=== PATIENT | male | born 1970 | race Caucasian/White ===

== ENCOUNTER 2025-07-06 17:44 | Inpatient (IN) | payer MEDICARE, MEDICAID ==
[~2025-07-06] VITALS: Ht 172.7 cm; Wt 86.3 kg
[~2025-07-06 17:44] MED LIST: ASPI-1265 PO; ATE25T PO; DIAZ-546 PO; NAPR-1144 PO
[2025-07-06] MEDS: morphine 4 MG/ML inj SYRINge IV ONE (18:04)
[2025-07-06] MEDS: normal saline 1000ml 1,000 ML IV ONE (18:13)
[2025-07-06] MEDS: morphine 4 MG/ML inj SYRINge IM ONE (18:13)
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
--- NOTE | 2025-07-06 18:45 | RADIOLOGY REPORT ---
CLINICAL INDICATION: RIGHT ANKLE TRAUMA TECHNIQUE: 3 radiographic views of the right ankle were obtained. Comparison: None FINDINGS/IMPRESSION: There is no evidence of acute fracture or dislocation. Small plantar calcaneal bony spur. The visualized joint space is well maintained. The alignment is anatomical. Wound over the posterior ankle with associated subcutaneous emphysema and soft tissue edema.
[2025-07-06 18:54] LABS: MEAN PLATELET VOLUME 8.6 FL (7.4-10.4); RED CELL DISTRIBUTION WIDTH 14.4 % (11.5-14.5)
--- NOTE | 2025-07-06 18:54 | RADIOLOGY REPORT ---
CLINICAL INDICATION: RIGHT ANKLE TRAUMA TECHNIQUE: 4 views of the right foot Comparison: DI ANKLE, COMPLETE(3VW MIN) on DOS: 07/06/25 FINDINGS/IMPRESSION: There is no evidence of acute fracture or dislocation. Soft tissues are unremarkable.
[2025-07-06 19:12] LABS: CREATININE 1.50 MG/DL (0.60-1.10); TOTAL CARBON DIOXIDE 27.7 MMOL/L (24-32); eCRCL 56 ML/MIN; eGFR 49 ML/MIN
[2025-07-06 19:17] LABS: ETHANOL < 10 MG/DL (<10)
[2025-07-06] MEDS ORDERED: Potassium Cl inj 40 MEQ in normal saline 500ml IV soln 500 ML IV STA (19:33)
[2025-07-06] MEDS: LIDOcaine 1% W/epiNEPHrine 1:100,000 20ml vial IJ ONE (19:34)
[2025-07-06] MEDS: CefTRIAXone 2gm/D5W 50ml BAG 50 ML IV ONE (20:12)
[2025-07-06] MEDS: vancomycin/NS 1 GM ADD-VANTAGE 250 ML IV ONE (20:12)
[2025-07-06] MEDS: TETanus/Pertussis (Acell)/Diphther VAC/PF (Tdap-Adult) 0.5ml syringe IMVAC ONE (20:13)
[2025-07-06] MEDS: Potassium Cl inj 40 MEQ in sodium chloride 0.45% 500ml 500 ML IV STA (20:22)
[2025-07-06] MEDS ORDERED: potassium Cl 40MEQ/1/2NS 520ml 520 ML IV PRN (20:50)
[2025-07-06] MEDS ORDERED: magnesium sulf-water 4G/100mL 100 ML IV PRN (20:50)
[2025-07-06] MEDS ORDERED: ondansetron/PF 4mg/2ml inj IV PRN (20:50)
[2025-07-06] MEDS ORDERED: magnesium Cl slow-release 64mg tablet PO PRN (20:50)
[2025-07-06] MEDS: normal saline 1000ml 1,000 ML IV SCH (20:50)
[2025-07-06] MEDS ORDERED: magnesium sulf-water 2g/50mL 50 ML IV PRN (20:50)
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
[2025-07-06] MEDS: thiamine 100mg/ml 2ml inj. IV SCH (22:01)
[2025-07-06] MEDS ORDERED: NO HOME MEDS (22:10)
[2025-07-06 23:23] VITALS: BP 134/86; PULSE 54; RESP 17; TEMP 98; O2SAT 99
[2025-07-06 23:28] LABS: LEUKOCYTE ESTERASE ,URINE NEGATIVE (Neg); NITRITES, URINE NEGATIVE (Neg); OCCULT BLOOD,URINE NEGATIVE (Neg)
[2025-07-06 23:32] LABS: UA COLLECTION TYPE URINAL
[2025-07-06 23:35] LABS: URINE AMPHETAMINE SCREEN POSITIVE (Neg); URINE BARBITUATE SCREEN NEGATIVE (Neg); URINE BENZODIAZEPINES SCREEN NEGATIVE (Neg); URINE CANNABINOID SCREEN NEGATIVE (Neg); URINE COCAINE SCREEN NEGATIVE (Neg); URINE METHADONE SCREEN NEGATIVE (Neg); URINE OPIATE SCREEN POSITIVE (Neg); URINE PHENCYCLIDINE SCREEN NEGATIVE (Neg)
[2025-07-07] VITALS (10 sets, daily range): BP systolic 140–202; BP diastolic 85–114; PULSE 54–91; RESP 16–18; TEMP 97.5–98.9; O2SAT 95–100
[2025-07-07] MEDS: potassium Cl 20 mEq SR tablet PO PRN ×2 (00:04→04:19)
[2025-07-07] MEDS: HYDROcodone/acetaminophen 5mg/325mg tablet PO PRN (05:17)
[2025-07-07 06:11] LABS: CREATININE 1.00 MG/DL (0.60-1.10); TOTAL CARBON DIOXIDE 27.9 MMOL/L (24-32); eCRCL 84 ML/MIN; eGFR 78 ML/MIN
[2025-07-07 06:16] LABS: MEAN PLATELET VOLUME 8.9 FL (7.4-10.4); RED CELL DISTRIBUTION WIDTH 14.4 % (11.5-14.5)
[2025-07-07] MEDS: K and/or MAG REPLACEMENT MC SCH (08:00)
[2025-07-07] MEDS: docusate sod 100mg capsule PO SCH (08:26)
[2025-07-07] MEDS: multivitamins, therapeutics tablet PO SCH (08:27)
[2025-07-07] MEDS: heparin, porcine 5000 units/ml vial SQ SCH (08:28)
[2025-07-07] MEDS: vancomycin/NS 1 GM ADD-VANTAGE 250 ML IV SCH (08:35)
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
[2025-07-07] MEDS: ringers solution, lacted 1,000 ML IV SCH (11:07)
[2025-07-07] MEDS: piperacillin/tazo 3.375gm/50ml 50 ML IV SCH (11:08)
[2025-07-07] MEDS ORDERED: CefTRIAXone/D5W-Rocephin 1gm 50 ML IV SCH (19:00)
[2025-07-08] MEDS: hydrALAZINE 20mg/ml inj. IV PRN (04:47)
[2025-07-08 06:00] VITALS: BP 183/111; PULSE 82; RESP 18; TEMP 97.7; O2SAT 97
[2025-07-08 06:28] LABS: MEAN PLATELET VOLUME 9.0 FL (7.4-10.4); RED CELL DISTRIBUTION WIDTH 15.0 % (11.5-14.5)
[2025-07-08 07:54] LABS: CREATININE 0.86 MG/DL (0.60-1.10); TOTAL CARBON DIOXIDE 31.4 MMOL/L (24-32); eCRCL 97 ML/MIN; eGFR > 90 ML/MIN
[2025-07-08] MEDS: hydrALAZINE 20mg/ml inj. IV ONE (08:44)
--- NOTE | 2025-07-08 08:52 | ELECTROCARDIOGRAPH REPORT ---
[facility] Test Date: 2025-07-06 Test Time: 17:44:04 Pat Name: ABI ARGUETA Department: EMERGENCY ROOM Room: ORTHO [facility] Gender: M [employer]inc Plating Machine Operator: CHER : 1970 Requested By: GRECIA WESLEY Order Number: [id number] Reading MD: Measurements Intervals [place] Rate: 88 P: 71 SD: 143 QRS: 91 QRSD: 110 T: 64 QT: 379 QTc: 459 Interpretive Statements Sinus rhythm Consider right atrial enlargement Borderline right axis deviation Probable left ventricular hypertrophy ST elev, probable normal early repol pattern Please click the below link to view image of tracing.
[2025-07-08 11:49] VITALS: BP 133/86; PULSE 84
[2025-07-08 18:00] VITALS: BP 143/91; PULSE 88; RESP 16; TEMP 97.8; O2SAT 99
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
[2025-07-08 22:00] VITALS: BP 152/88; PULSE 72; RESP 14; TEMP 97.6; O2SAT 98
[2025-07-09 06:00] VITALS: BP 191/112; PULSE 81; RESP 16; TEMP 97.4; O2SAT 98
[2025-07-09 06:13] LABS: MEAN PLATELET VOLUME 9.0 FL (7.4-10.4); RED CELL DISTRIBUTION WIDTH 14.7 % (11.5-14.5)
[2025-07-09 06:20] LABS: CREATININE 0.94 MG/DL (0.60-1.10); TOTAL CARBON DIOXIDE 31.4 MMOL/L (24-32); eCRCL 89 ML/MIN; eGFR 84 ML/MIN
[2025-07-09] MEDS: pantoprazole 40mg Tablet.DR PO SCH (07:30)
[2025-07-09 07:43] VITALS: BP 156/95
[2025-07-09 10:00] VITALS: BP 133/85; PULSE 85; RESP 16; TEMP 99.2; O2SAT 97
[2025-07-09] MEDS ORDERED: CEPH500C2 PO (12:49)
--- NOTE | 2025-07-09 18:58 | DISCHARGE SUMMARY ---
Discharge Summary Providers to No new complaint today asking to be discharged home ~ Discharge Summary Assessment Left foot laceration repaired by ER doctor Polysubstance abuse Chronic alcoholism Hypokalemia Acute kidney injury secondary to vasomotor nephropathy Bipolar/depression schizophrenia Homelessness and incarceration history Admission Diagnosis: ETOH, HYPOKALEMIA Admission Diagnosis Comment: Left foot laceration repaired by ER doctor Polysubstance abuse Chronic alcoholism Hypokalemia Acute kidney injury secondary to vasomotor nephropathy Bipolar/depression schizophrenia Homelessness and incarceration history Hospital Course DATE OF ADMISSION: July 06, 2025 DATE OF DISCHARGE: July 09, 2025 Discharge Diagnosis\Comment: Left foot laceration repaired by ER doctor Polysubstance abuse Chronic alcoholism Hypokalemia Acute kidney injury secondary to vasomotor nephropathy Bipolar/depression schizophrenia Homelessness and incarceration history Operations\Procedures: Laceration repair right foot Consultants: None Complications: None Condition on DC: Stable Discharge Summary: This is a 47-year-old male brought in by for continued anxiety, fear, with no p.o. intake, history of psychiatric disorder and catatonia. states very little eating and drinking over the past week previous evaluation on 06/27/2025 patient has been home since July 01, 2025. No intake since then. Patient also had some nausea and vomiting with last emesis yesterday.PREVIOUS: ED with chief complaints of anxiety, increased fear, nausea. Psychiatric symptoms returned in the context of outpatient provider discontinuing lorazepam. Has been trying to wander away from home for the past two days, anxiety increased to the extent that he has been unable to eat, didnt sleep last night, has already gone 24 hours with no sleep and no PO intake. After admission patient was extensively evaluated and treated today he feels fine asking to be discharged home, medication reconciled he will be discharged in stable condition follow-up PCP and wound care in the morning, today on physical exam Vital signs, stable ,afebrile. Pulse Oximetry reflects adequate oxygenation. General: well developed, well nourished. Awake , alert, and oriented x4, resting comfortably in the bed, in no acute distress . Skin: Warm, dry, no pallor, no rash or petechiae. HEENT: Atraumatic, normocephalic, EOMI, anicteric sclera B; pink conjunctiva; PERRLA, normal oropharynx, moist oral and nasal mucosa. Tympanic membrane , nose , throat clear. Neck: Trachea midline. Supple, full range of motion, no JVD, bruit , hepatojugular reflex , lymphadenopathy or masses, or other lesions Cardiac: Regular rhythm, regular rate no murmurs, rubs, or gallops. Normal S1 and S2, no S3 noticed. PMI is normal. Respiratory: Equal breath sounds bilaterally, no tachypnea; lungs clear to auscultation bilaterally, no wheezing ,rub or rales, or crackles. Chest wall is symmetric and without deformity. No signs of trauma. Chest wall is nontender. No signs of respiratory distress. Resonance is normal upon percussion bilaterally. Gastrointestinal: Abdomen symmetric, non-distended, soft, non-tender, normal bowel sounds x4 quadrant, normoactive, no hepatosplenomegaly , no masses , no bruit, no flank pain bilaterally. No voluntary guarding, rebound, or rigidity. No tenderness to percussion. No pulsatile masses. Equal femoral pulses. No Villanueva's sign or McBurney point tenderness. Back; no CVA tenderness bilaterally, no deformities. Neck and back are without deformity as well. No tenderness noted on palpation of the spinous processes. Spinous processes are midline. Cervical, thoracic, and lumbar paraspinal muscles are not tender and are without spasm. : normal external genitalia, without lesions, swelling, masses or tenderness. Musculoskeletal: Extremities, normal range of motion, non-tender, muscle strength 5/5 x 4. Negative Homans signs bilaterally on lower extremity. Distal pulses full symmetrical, no clubbing, cyanosis , edema. Right foot, dressing clean dry and intact, neurovascular grossly intact Neurological: Speech is clear, alert, and oriented x 4. No motor or sensory deficit, deep tendon reflexes normal, cerebellar intact. Cranial nerves II-XII intact. Psych: Alert and or appropriate, normal affect. Vascular: Good distal pulses, which are equal x4; capillary refill less than 2 seconds. Lymphatic, no lymphadenopathy. *Problems/Diagnosis: (1) Laceration of right ankle with foreign body Status: Acute Total Time Spent on D/C: > 30 Minutes Date of Service: Jul 09, 2025 Billing Provider: VIRGINIA GAN MD Common Visit Codes: 72656-YUQ/OBS DISCH DAY >30min Problem Qualifiers (1) Laceration of right ankle with foreign body: Qualified Codes: S91.021A - Laceration with foreign body, right ankle, initial encounter VIRGINIA GAN MD Jul 09, 2025 18:57
== END 2025-07-09 14:20 | disposition home or self-care (01) | DRG 907 ==
LOC: ER 17:45 → ED HOLD 20:51 → EDBEDREQ 21:39 → ORTHO 4S 23:20
PROVIDERS: ADMIT Internal Medicine; ATTEND Nurse Practitioner Family
PROC: 0LQS0ZZ Repair Right Ankle Tendon, Open Approach (ICD-10-PCS; principal; 2025-07-06)
DX: S91.021A Laceration with foreign body, right ankle, initial encounter (principal); N17.0 Acute kidney failure with tubular necrosis; Z59.00 Homelessness unspecified; Z66 Do not resuscitate; I95.9 Hypotension, unspecified; I16.0 Hypertensive urgency; F19.10 Other psychoactive substance abuse, uncomplicated; F10.20 Alcohol dependence, uncomplicated; E87.6 Hypokalemia; F20.9 Schizophrenia, unspecified; E86.0 Dehydration; X58.XXXA Exposure to other specified factors, initial encounter; F32.A Depression, unspecified; F41.9 Anxiety disorder, unspecified; Z87.891 Personal history of nicotine dependence; Z91.199 Patient's noncompliance with other medical treatment and regimen due to unspecified reason; Y93.89 Activity, other specified; Y92.89 Other specified places as the place of occurrence of the external cause; Y99.8 Other external cause status
CPT/HCPCS: 12032; 36415; 73610; 73630; 80048; 80053; 80076; 80202; 80305; 80320; 81003; 82948; 83735; 84145; 85025; 87081; 90715; 93005; 96365; 97110; 97116; 97161; 97530; 97760; 99285; A4615; A4620; A6258; A6446; A6449; G0378; J0360; J0696; J1171; J1644; J2270; J2470; J2543; J3373; J3411; J3480; J3490; J7030; J7040; J7120

== ENCOUNTER 2025-08-07 00:15 | Inpatient (IN) | payer MEDICARE, MEDICAID ==
[~2025-08-07] VITALS: Ht 172.7 cm; Wt 86.4 kg
[2025-08-07] VITALS (7 sets, daily range): BP systolic 100–175; BP diastolic 70–107; PULSE 60–87; RESP 15–19; TEMP 97.5–98.6; O2SAT 97–100
[~2025-08-07 00:15] MED LIST changes: +NO HOME MEDS
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
[2025-08-07] MEDS: CefTRIAXone 2gm/D5W 50ml BAG 50 ML IV ONE (01:18)
[2025-08-07] MEDS: vancomycin/NS 1 GM ADD-VANTAGE 250 ML IV ONE ×2 (01:25→03:25)
--- NOTE | 2025-08-07 01:34 | RADIOLOGY REPORT ---
CLINICAL INDICATION: infection RIGHT, pain and swelling TECHNIQUE: ANKLELTDDI ANKLE,LIMITED (AP/LAT) Comparison: DI ANKLE, COMPLETE(3VW MIN) on DOS: 07/06/25, DI FOOT, COMPLETE (3VW MIN) on DOS: 07/06/25 FINDINGS/IMPRESSION: : Large focal ulceration along the medial aspect of the ankle with soft tissue gas. No obvious erosive bony changes. No fracture or malalignment.
--- NOTE | 2025-08-07 01:34 | RADIOLOGY REPORT ---
CHEST RADIOGRAPH Indication: infection Technique: Single frontal view of the chest was obtained COMPARISON: None FINDINGS: Lungs and pleural spaces are clear. Cardiac silhouette and hilary are within normal limits. Bones and soft tissues demonstrate no significant abnormality. IMPRESSION: No acute disease.
[2025-08-07 01:45] LABS: MEAN PLATELET VOLUME 8.8 FL (7.4-10.4); RED CELL DISTRIBUTION WIDTH 14.1 % (11.5-14.5)
[2025-08-07 01:46] LABS: CREATININE 0.93 MG/DL (0.60-1.10); TOTAL CARBON DIOXIDE 31.5 MMOL/L (24-32); eCRCL 90 ML/MIN; eGFR 85 ML/MIN
[2025-08-07] MEDS ORDERED: mag hydrox/Alum hydrox/simeth 30ml oral suspension PO PRN (02:35)
[2025-08-07] MEDS ORDERED: magnesium sulf-water 4G/100mL 100 ML IV PRN (02:35)
[2025-08-07] MEDS ORDERED: potassium Cl 40MEQ/1/2NS 520ml 520 ML IV PRN (02:35)
[2025-08-07] MEDS ORDERED: ondansetron/PF 4mg/2ml inj IV PRN (02:35)
[2025-08-07] MEDS ORDERED: potassium Cl 20 mEq SR tablet PO PRN (02:35)
[2025-08-07] MEDS ORDERED: magnesium Cl slow-release 64mg tablet PO PRN (02:35)
[2025-08-07] MEDS ORDERED: HYDROmorphone inj. 0.5 MG/0.5 ML DISP.SYRIN IV PRN (02:35)
[2025-08-07] MEDS ORDERED: magnesium hydroxide 30ml (MOM) UD suspension PO PRN (02:35)
[2025-08-07] MEDS ORDERED: magnesium sulf-water 2g/50mL 50 ML IV PRN (02:35)
[2025-08-07 03:04] LABS: APTT 27 SECONDS (22-32); INR 1.0 INR
[2025-08-07] MEDS: normal saline 1000ml 1,000 ML IV SCH (03:08)
[2025-08-07 03:10] LABS: CHOL/HDL RATIO 4.3 (0.00-4.99); ETHANOL < 10 MG/DL (<10); LDL CHOLESTEROL 112 MG/DL (50-100); PHOSPHORUS 3.5 MG/DL (2.3-4.5); PRO BRAIN NATRIURETIC PEPTIDE 253 PG/ML (0-125)
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
[2025-08-07 05:20] LABS: LEUKOCYTE ESTERASE ,URINE NEGATIVE (Neg); NITRITES, URINE NEGATIVE (Neg); OCCULT BLOOD,URINE NEGATIVE (Neg)
[2025-08-07 05:21] LABS: UA COLLECTION TYPE CLN CATCH MIDSTREAM
[2025-08-07 05:50] LABS: URINE AMPHETAMINE SCREEN POSITIVE (Neg); URINE BARBITUATE SCREEN NEGATIVE (Neg); URINE BENZODIAZEPINES SCREEN NEGATIVE (Neg); URINE CANNABINOID SCREEN NEGATIVE (Neg); URINE COCAINE SCREEN NEGATIVE (Neg); URINE METHADONE SCREEN NEGATIVE (Neg); URINE OPIATE SCREEN NEGATIVE (Neg); URINE PHENCYCLIDINE SCREEN NEGATIVE (Neg)
[2025-08-07] MEDS: K and/or MAG REPLACEMENT MC SCH (07:38)
[2025-08-07] MEDS: heparin, porcine 5000 units/ml vial SQ SCH (07:41)
[2025-08-07] MEDS: nicotine 21mg patch - 24 hr TD SCH (07:41)
[2025-08-07] MEDS: docusate sod 100mg capsule PO SCH (07:41)
[2025-08-07] MEDS: potassium Cl 20 mEq SR tablet PO PRN (09:19)
[2025-08-07] MEDS: HYDROmorphone/PF 0.2 MG/ML SYRINGE IV PRN (09:50)
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
[2025-08-07] MEDS ORDERED: dextrose 50%-water 50ml dispensing syringe IV PRN (12:05)
[2025-08-07] MEDS: metroNIDAZOLE-Flagyl 500mg/NS 100 ML IV SCH (12:05)
[2025-08-07] MEDS ORDERED: haloperidol lactate 5mg/ml inj IM PRN (12:05)
--- NOTE | 2025-08-07 12:36 | CONSULTATION REPORT ---
History of Present Illness Providers to CC ~ Reason for Admit\Admit Dx: left ankle wound Refering MD: Dr Kiser History of Present Illness The patient is a 54-year-old male with PMH significant for schizophrenia, bipolar disorder, polysubstance use disorder (daily methamphetamine use), chronic alcohol use disorder (reports consuming approximately half a gal of vodka per day), and heavy tobacco use (1.5 pack/day since childhood). He is currently unstable housed, intermittently staying with his sister, and was brought from retirement custody due to concerns for progressively worsening right medial ankle wound. There was some concern about osteomyelitis or necrotizing fasciitis. Therefore orthopedic consultation is obtained ankle x-ray and MRI have been obtained Allergies: Coded Allergies: No Known Allergies (Unverified , 07/06/25) Home Medications Home Medications Active Reported No Home Medications (Home Med List) Each Past Family History Family History: FH: heart disease (Sisters, mother) Physical Exam Last Vital Signs Recorded: Temperature: 98.6, Source: Oral, Heart Rate: 87, Respiratory Rate: 18, BP: 100/70, Pulse Oximetry: 100, Weight: 86.360 General Appearance: alert, no apparent distress Extremities Full-thickness soft tissue loss over the medial ankle just above the medial malleolus there is no evidence of ascending lymphangitis no tenderness above the ankle or calf area. He is moving his ankle and toes well. There was no evidence of subcutaneous abscess. Results Results/Orders Results/Orders The MRI and x-rays were reviewed no bony lesions are noted and there does not appear to be free air in the soft tissues other than at the break in the skin Diagram Lab Result Diagram: 08/07/25 0115 08/07/25 0936 Assessment/Plan Problems/Diagnosis: (1) Cellulitis of ankle (2) Open wound of ankle Additional Plan I believe wound care and antibiotics are the appropriate management at this time. I do not see any evidence of deep abscess or necrotizing fasciitis. We will should his condition change I would be happy to re-evaluate. Thank you for the consultation. Problem Qualifiers (1) Open wound of ankle: Qualified Codes: S91.001A - Unspecified open wound, right ankle, initial encounter FRANCA ROGERS Jr., MD Aug 07, 2025 12:36
[2025-08-07] MEDS: multivitamins, therapeutics tablet PO SCH (13:00)
[2025-08-07] MEDS: thiamine 100mg/ml 2ml inj. IV SCH (13:00)
[2025-08-07] MEDS: folic acid 1mg/0.2ml inj IV SCH (13:00)
[2025-08-07] MEDS: VANCOmycin 1250MG/NS 250ml Bag 250 ML IV SCH (13:02)
[2025-08-07] MEDS ORDERED: vancomycin/NS 1 GM ADD-VANTAGE 250 ML IV SCH (14:00)
--- NOTE | 2025-08-07 15:13 | PROGRESS NOTE- Residence ---
Progress Note - Resident Providers to CC Resident Creating Document: SOCO CHAN, RES ~ Antibiotic Timeout Antibiotic Ordered?: Yes Subjective The patient was seen and examined at bedside today. He complains of pain in his back. He would like to stay in the hospital for as long as he can, because his living situation outside is not very good. He would have to go back to his sister's place after discharge. He is on a probation. ID and ortho consulted. He admits to drinking one bottle of vodka each day and smokes one and half pack of cigarettes, also smokes methamphetamines regularly. Objective Vital Signs Date Time Temp Pulse Resp B/P (MAP) Pulse Ox O2 Delivery O2 Flow Rate FiO2 08/07/25 10:35 100/70 (80) 08/07/25 09:50 18 08/07/25 09:48 98.6 87 100 Room Air 08/07/25 05:00 98 Result Diagram: 08/07/25 0115 08/07/25 0936 Adult male, awake, alert and oriented, not in acute distress Head: Normocephalic with an atraumatic Eyes: Pupils- 3mm, reacting to light, conjunctiva- anicteric Nose and throat: No polyps, septum- normal, no mucosal ulcers Neck: Supple, no lymphadenopathy, no carotid bruit Respiratory: No use of accessory muscles of respiration, Bilateral normal veiscular breath sounds heard. No wheeze, rhochi or creps Cardiac: S1-S2 heard, rhythm regular, no gallop/murmur Abdomen: non distended, no tenderness, no organomegaly, bowel sounds - heard Extremities: right medial ankle - 1x2.5cm purulent non healing ulcer with white granulation tissue, no sinus tracts seen, no clubbing, no pedal edema, no deformities, peripheral pulses - 2+ Skin: warm and dry, no rash, no purpura Neuro: No focal deficit, gross cranial nerve exam - normal Coagulation Studies Laboratory Tests Test 08/07/25 01:15 Prothrombin Time 10.3 SECONDS (9.0-12.0) INR International Normalized Ratio 1.0 INR Activated Partial Thromboplast Time 27 SECONDS (22-32) Coagulation Comments Plan Plan Right medial ankle purulent non-healing wound Possible osteomyelitis Ankle x-ray reported large focal ulceration along the medial aspect of the ankle with soft tissue gas. WBC within normal limits, lactic acid normal, procalcitonin normal, CRP elevated at 0.71, ESR 32. Follow up with MRI right lower extremity with and without contrast. Continue the antibiotics - ceftriaxone, vancomycin and metronidazole day 1. Infectious diseases, Dr. Razo and orthopedic surgeon, Dr. Brantley consulted for suspicion of necrotizing fasciits. Continue normal saline 100 mL/hour. Wound care consult in place, follow up with culture reports. Hypokalemia Patient's potassium is 3.2, replaced as per protocol Untreated hypertension Patient stated that he does not take any medications for his hypertension. Started the patient on amlodipine 10 mg daily. Alcohol use disorder Methamphetamine use disorder Nicotine use disorder Homelessness Urine toxicology screen positive for methamphetamines. creative services intern and substance use navigator consult in place. Started the patient on severe alcohol withdrawl protocol. Continue daily thiamine, folic acid, multivitamin supplementation. Diazepam and haloperidol for anxiety and agitation. Bipolar disorder Schizophrenia Patient does not follow up with a psychiatrist. Currently not on any medications. He was on risperidone, benztropine but quit taking them 2 years ago. Code Status: DNR DVT Prophylaxis: Heparin Lines/Tubes: PIV Nutrition: 2 g sodium restricted diet PT: Ordered Prognosis: Guarded Disposition: Follow up with MRI right lower extremity. Continue antibiotics and wound care. Soco Chan MD Internal Medicine Resident, PGY-2 Date of Service: Aug 07, 2025 Billing Provider: JOSEPHINE CAMPUZANO MD Common Visit Codes: NOT BILLABLE (Admitted on 08/07) SOCO CHAN, RES Aug 07, 2025 15:13 JOSEPHINE CAMPUZANO MD Aug 14, 2025 07:35
--- NOTE | 2025-08-07 15:31 | RADIOLOGY REPORT ---
EXAM: MR MRI LOWER EXTREMITY RIGHT INDICATION: non healing wound TECHNIQUE: Multiplanar and multisequence MR imaging of the right ankle was performed in the absence of gadolinium contrast. COMPARISON: DI ANKLE,LIMITED (AP/LAT) on DOS: 08/07/25 FINDINGS: MEDIAL ANKLE: Intact posterior tibialis, flexor hallucis longus, and flexor digitorum tendons. Intact deltoid ligament. Intact spring ligament complex. LOW LATERAL ANKLE: Intermediate signal intensity with possible thickening of the anterior talofibular ligament. Intact peroneal brevis and longus tendons without tenosynovitis. HIGH LATERAL ANKLE: Intact anterior and posterior inferior tibiofibular ligaments. ANTERIOR ANKLE: Intact anterior tibialis, extensor digitorum longus, and extensor hallucis longus tendons. POSTERIOR ANKLE: No tibiotalar or subtalar joint effusion. Normal sinus Tarsi. Normal plantar fascia. Normal Achilles tendon. No retrocalcaneal bursitis. soft tissue ulceration with extensive surrounding phlegmon without definitive drainable fluid collection along the posterior medial aspect of the heel. Abnormal phlegmon extends into the pre Achilles fat pad with subsequent adjacent edema/ inflammation along the margin of the Achilles tendon. MIDFOOT: Normal. BONES: Indeterminate osteitis of the cuboid of Indeterminate of the consideration for stress reaction/bone contusion given known overlying ulceration in this region. No MR evidence of osteomyelitis. MUSCLES: Normal. NEUROVASCULAR: Normal tarsal tunnel OTHER: None IMPRESSION: 1. Soft tissue ulceration with extensive surrounding phlegmon without definitive drainable fluid collection along the posterior medial aspect of the heel. 2. Abnormal phlegmon extends into the pre Achilles fat pad with subsequent adjacent edema/ inflammation along the margin of the Achilles tendon. 3. No MR evidence of osteomyelitis. 4. Indeterminate osteitis of the cuboid of Indeterminate of the consideration for stress reaction/bone contusion given known overlying ulceration in this region.
[2025-08-07] MEDS ORDERED: diazepam inj 5 MG/ML inj. IV PRN (15:55)
[2025-08-07] MEDS: GADOTERATE MEGLUMINE 7.5 MMOL/15 ML VIAL IV ONE (16:22)
[2025-08-08] VITALS (7 sets, daily range): BP systolic 115–160; BP diastolic 70–95; PULSE 52–84; RESP 14–18; TEMP 97.7–98.3; O2SAT 98–100
[2025-08-08] MEDS: HYDROcodone/acetaminophen 5mg/325mg tablet PO PRN (02:27)
[2025-08-08 05:13] LABS: MEAN PLATELET VOLUME 9.1 FL (7.4-10.4); RED CELL DISTRIBUTION WIDTH 14.4 % (11.5-14.5)
[2025-08-08 05:52] LABS: CREATININE 0.82 MG/DL (0.60-1.10); TOTAL CARBON DIOXIDE 27.2 MMOL/L (24-32); eCRCL 102 ML/MIN; eGFR > 90 ML/MIN
[2025-08-08] MEDS: CefTRIAXone/D5W-Rocephin 1gm 50 ML IV SCH (09:03)
--- NOTE | 2025-08-08 11:58 | PROGRESS NOTE- Residence ---
Progress Note - Resident Providers to CC Resident Creating Document: LALI ENAMORADO RES ~ Antibiotic Timeout Antibiotic Ordered?: Yes Subjective The patient was seen and examined at bedside today. MRI negative for osteomylitis. He has remained afebrile with no elevated inflamatory markers. From ID standpoint, he is ready to be DC'd on Doxycycline 100 mg twice daily for 10 days and wound care follow up. We are signing off. Objective Vital Signs Date Time Temp Pulse Resp B/P (MAP) Pulse Ox O2 Delivery O2 Flow Rate FiO2 08/08/25 11:18 98.3 84 16 148/95 (112) 100 Room Air 08/07/25 05:00 98 General: Awake and Alert, no acute distress. Resp: Unlabored. Lungs clear to auscultation bilaterally. Heart: Regular Rate and rhythm, normal S1 and S2 without murmur, rub or gallop. Abdomen: Soft and non tender no organomegaly Extremities: Right foot: approximately 3x4 cm with the exposed granulation tissue and areas of necrosis and slough covering the wound via photograph. Threre is surrounding erythema. Skin: Warm and Dry. Result Diagram: 08/09/2518 08/09/2518 Coagulation Studies Laboratory Tests Test 08/07/25 01:15 Prothrombin Time 10.3 SECONDS (9.0-12.0) INR International Normalized Ratio 1.0 INR Activated Partial Thromboplast Time 27 SECONDS (22-32) Coagulation Comments Advance Care Planning Advanced Care plannin - 30 Minutes Assessment Assessment 08/07/2025: Lower extrimity MRI 1. Soft tissue ulceration with extensive surrounding phlegmon without definitive drainable fluid collection along the posterior medial aspect of the heel. 2. Abnormal phlegmon extends into the pre Achilles fat pad with subsequent adjacent edema/ inflammation along the margin of the Achilles tendon. 3. No MR evidence of osteomyelitis. 4. Indeterminate osteitis of the cuboid of Indeterminate of the consideration for stress reaction/bone contusion given known overlying ulceration in this region. Chronic posttraumatic right medial ankle wound Infected right medial ankle with purulent discharge Original ulceration 07/05 with subsequent wound dehiscence Patient self removed sutures; minimal wound care since Photograph shows 3-4 cm open wound with granulation, sloughs, and necrotic tissues with sorrounding erythema Differential: Chronic soft tissue infection versus cellulitis versus osteomyelitis No systemic inflammatory response (no leukocytosis, afebrile), ESR mildly elevated (32) Risk factors: Poor wound hygiene and delayed care, alcohol and meth use, homelessness and psychosocial barriers to O/P wound care Plan: Ready to be DC'd on Doxycycline 100 mg twice daily for 10 days. OP wound care follow up. We are signing off. Chronic alcohol use disorder Polysubstance use disorder/methamphetamine use Tobacco use disorder Management per primary team. Recommend CIWA protocol, social work consult and substance use navigator consult Electrolyte disturbance/hypokalemia Hypertension Management per primary team Lali Enamorado Internal Medicine Resident, PGY-3 Date of Service: Aug 08, 2025 Billing Provider: JAMIN THOMAS MD Addendum Agree with above note. Patient seen and examined with Dr. Enamorado. No evidence of osteomyelitis and he will be discharged with doxycycline. LALI ENAMORADO, RES Aug 08, 2025 11:58 JAMIN THOMAS MD Aug 09, 2025 16:52
[2025-08-08] MEDS: VANCOMYCIN LEVEL IV ONE (13:51)
--- NOTE | 2025-08-08 17:49 | PROGRESS NOTE- Residence ---
Progress Note - Resident Providers to CC Resident Creating Document: SOCO CHAN CHUYBREA, TONYA ~ Antibiotic Timeout Antibiotic Ordered?: Yes Subjective The patient was seen and examined at bedside today. ID started the patient on p.o. doxycycline. He reported back pain and the examination revealed point tenderness. MRI ordered. Objective Vital Signs Date Time Temp Pulse Resp B/P (MAP) Pulse Ox O2 Delivery O2 Flow Rate FiO2 08/08/25 12:12 18 08/08/25 11:18 98.3 84 148/95 (112) 100 Room Air 08/07/25 05:00 98 Result Diagram: 08/08/2543808/08/25438 Adult male, awake, alert and oriented, not in acute distress Head: Normocephalic with an atraumatic Eyes: Pupils- 3mm, reacting to light, conjunctiva- anicteric Nose and throat: No polyps, septum- normal, no mucosal ulcers Neck: Supple, no lymphadenopathy, no carotid bruit Respiratory: No use of accessory muscles of respiration, Bilateral normal veiscular breath sounds heard. No wheeze, rhochi or creps Cardiac: S1-S2 heard, rhythm regular, no gallop/murmur Abdomen: non distended, no tenderness, no organomegaly, bowel sounds - heard Back: Point tenderness in lower back Extremities: right medial ankle - 1x2.5cm purulent non healing ulcer with white granulation tissue, no sinus tracts seen, no clubbing, no pedal edema, no deformities, peripheral pulses - 2+ Skin: warm and dry, no rash, no purpura Neuro: No focal deficit, gross cranial nerve exam - normal Coagulation Studies Laboratory Tests Test 08/07/25 01:15 Prothrombin Time 10.3 SECONDS (9.0-12.0) INR International Normalized Ratio 1.0 INR Activated Partial Thromboplast Time 27 SECONDS (22-32) Coagulation Comments Plan Plan Right medial ankle purulent non-healing wound Osteomyelitis, ruled out Necrotizing fasciitis, ruled out Ankle x-ray reported large focal ulceration along the medial aspect of the ankle with soft tissue gas. MRI right lower extremity revealed soft tissue ulceration with extensive surrounding phlegmon without definitive drainable fluid collection along the posterior medial aspect of the heel. Extends into pre Achilles fat pad with subsequent adjacent edema/inflammation along the margin of Achilles tendon. No osteomyelitis. WBC within normal limits, lactic acid normal, procalcitonin normal, CRP elevated at 0.71, ESR 32. Orthopedic surgeon, Dr. Brantley consulted and he ruled out necrotizing fasciitis. Infectious diseases, Dr. Razo is on board. Changed antibiotics from IV ceftriaxone, vancomycin and metronidazole to p.o. doxycycline 100 mg twice daily which has to be continued for 10 days. Continue normal saline 100 mL/hour. Wound care consult in place, follow up with culture reports. Lower back pain Point tenderness present. Follow up with lumbar spine MRI. Hypokalemia, resolved Continue monitoring CMP. Untreated hypertension Medication noncompliance Blood pressures have been stable on amlodipine 10 mg daily. Alcohol use disorder Methamphetamine use disorder Nicotine use disorder Homelessness Urine toxicology screen positive for methamphetamines. environmental services supervisor and substance use navigator consult in place. Started the patient on severe alcohol withdrawl protocol. Continue daily thiamine, folic acid, multivitamin supplementation. Diazepam and haloperidol for anxiety and agitation. Bipolar disorder Schizophrenia Patient does not follow up with a psychiatrist. Currently not on any medications. He was on risperidone, benztropine but quit taking them 2 years ago. Code Status: DNR DVT Prophylaxis: Heparin Lines/Tubes: PIV Nutrition: 2 g sodium restricted diet PT: Ordered Prognosis: Guarded Disposition: Follow up with MRI lumbar spine. Anticipate discharge tomorrow. Soco Chan MD Internal Medicine Resident, PGY-2 The patient was seen, examined and discussed with the attending physician, Dr. Kiser. Date of Service: Aug 08, 2025 Billing Provider: JOSEPHINE KISER MD Common Visit Codes: [id number] INP/OBS CARE(HIGH) SOCO CHAN, RES Aug 08, 2025 17:49 JOSEPHINE KISER MD Aug 14, 2025 07:35
[2025-08-08] MEDS: diazepam inj 5 MG/ML inj. IV ONE (18:10)
--- NOTE | 2025-08-08 18:22 | RADIOLOGY REPORT ---
PROCEDURE: MR MRI LUMBAR SPINE Indication: point tenderness COMPARISON: None TECHNIQUE: Multiplanar multisequence images of the the lumbar spine are obtained. FINDINGS: For the purpose of this examination, there are 5 lumbar vertebral body types counting from the lumbosacral junction. The lumbar heights are maintained. There is moderate Multilevel Disc space narrowing most pronounced at L2-3, L3-4 and L5-S1. No abnormal marrow edema. Conus terminates at the L1 level. L1-2: No disc protrusion. No spinal canal, neural foraminal stenosis. L2-3: 3 mm disc protrusion. Mild facet and flavum hypertrophy. No spinal canal stenosis. Mild bilateral neural foraminal stenosis. L3-4: 3 mm disc protrusion. Mild facet and flavum hypertrophy. No spinal canal stenosis. Moderate bilateral neural foraminal stenosis. L4-5: 2 mm protrusion. [id number] facet and flavum hypertrophy. No spinal canal stenosis. Moderate to severe bilateral neural foraminal stenosis. L5-S1: 2 mm disc protrusion. Afll-or-vhyjaama facet and flavum hypertrophy no spinal canal stenosis. Moderate to severe bilateral neural foraminal stenosis. IMPRESSION: Moderate lumbar degenerative disc disease. Multilevel neural foraminal stenosis most pronounced at L3-4, L4-5 and L5 as described above.
[2025-08-08] MEDS: DOXYCYCLINE 100MG CAPSULE PO SCH (20:06)
[2025-08-09] MEDS ORDERED: VANCOMYCIN/WATER FOR INJ (PEG) 1.5GM/300 ML IVPB IV SCH (02:00)
[2025-08-09 05:40] LABS: MEAN PLATELET VOLUME 8.9 FL (7.4-10.4); RED CELL DISTRIBUTION WIDTH 14.4 % (11.5-14.5)
[2025-08-09 05:53] LABS: CREATININE 0.80 MG/DL (0.60-1.10); TOTAL CARBON DIOXIDE 29.1 MMOL/L (24-32); eCRCL 105 ML/MIN; eGFR > 90 ML/MIN
[2025-08-09 06:00] VITALS: BP_SYST 164; BP_SYST 166; BP_DIAS 92; BP_DIAS 96; PULSE 76; RESP 16; TEMP 98.5; O2SAT 98
[2025-08-09 08:00] VITALS: RESP 16; O2SAT 97
[2025-08-09 09:15] LABS: HBSAG SCREEN Negative (Negative); HEP B CORE AB, IGM Negative (Negative); HEP B CORE AB, TOT Negative (Negative)
[2025-08-09 10:15] VITALS: BP 146/85; PULSE 73; RESP 17; TEMP 98.3; O2SAT 100
[2025-08-09] MEDS ORDERED: DOXY-224 PO (13:28)
[2025-08-09] MEDS ORDERED: MULT-25 PO (13:28)
[2025-08-09] MEDS ORDERED: AMLO10TA13 PO (13:28)
[2025-08-09] MEDS ORDERED: FOLI1TAB27 PO (13:28)
[2025-08-09] MEDS ORDERED: thiamine tablet PO (13:28)
[2025-08-09] MEDS ORDERED: LACT1CAP26 PO (13:28)
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
[2025-08-10] MEDS ORDERED: VANCOMYCIN LEVEL IV ONE (13:30)
== END 2025-08-09 13:55 | disposition home or self-care (01) | DRG 605 ==
LOC: ER 00:15 → ED HOLD 02:40 → SUR 3N 04:35
PROVIDERS: ADMIT Internal Medicine Pulmonary Disease; ATTEND Family Medicine
DX: S91.001A Unspecified open wound, right ankle, initial encounter (principal); L03.115 Cellulitis of right lower limb; Z66 Do not resuscitate; F10.10 Alcohol abuse, uncomplicated; I10 Essential (primary) hypertension; F19.10 Other psychoactive substance abuse, uncomplicated; F31.9 Bipolar disorder, unspecified; L97.311 Non-pressure chronic ulcer of right ankle limited to breakdown of skin; Z59.00 Homelessness unspecified; M51.369 Other intervertebral disc degeneration, lumbar region without mention of lumbar back pain or lower extremity pain; M48.061 Spinal stenosis, lumbar region without neurogenic claudication; E87.6 Hypokalemia; F20.9 Schizophrenia, unspecified; X58.XXXA Exposure to other specified factors, initial encounter; Y93.89 Activity, other specified; Y92.89 Other specified places as the place of occurrence of the external cause; Y99.8 Other external cause status; Z91.148 Patient's other noncompliance with medication regimen for other reason
CPT/HCPCS: 36415; 71045; 72148; 73600; 73723; 80048; 80053; 80061; 80076; 80202; 80305; 80320; 81003; 82948; 83036; 83605; 83690; 83735; 83880; 84100; 84132; 84145; 85025; 85610; 85651; 85730; 86140; 86704; 86705; 87040; 87070; 87077; 87081; 87186; 87340; 96365; 97161; 97530; 99285; A4649; A6209; A6260; A6402; A6446; A6449; G0378; J0696; J1171; J1644; J3360; J3373; J3374; J3411; J3490; J7030